=== PATIENT | male | born 1930 | race Caucasian/White ===

== ENCOUNTER 2017-07-18 11:20 | Emergency (ER) | payer MEDICARE, OTHER ==
--- NOTE | 2017-07-18 12:49 | EDM.PDOC ---
ED HPI GENERAL MEDICAL PROBLEM - General Chief Complaint: Neuro Symptoms/Deficits Stated Complaint: STROKE ? Time Seen by Provider: 07/18/17 12:46 Source of Information: Reports: Patient History Limitations: Reports: No Limitations - History of Present Illness INITIAL COMMENTS - FREE TEXT/NARRATIVE: Pt got out of the car at [facility] and he could not figure \out how to use his feet. He was weak on the left side. He has had a previous strokeinvolving the lft. He was started on elequist about 6 days ago. He had been off of coumadin for 2 monthes. He has a history of afib. Onset: Sudden Duration: Hour(s):, Other (pt was not able to use his walker when he got out of the car today. ) Location: Reports: Lower Extremity, Left Associated Symptoms: Reports: Weakness, Other ( difficulty ambulating. ) - Related Data Allergies Allergy/AdvReac Type Severity Reaction Status Date / Time No Known Allergies Allergy Verified 07/18/17 12:32 Past Medical History Cardiovascular History: Reports: Afib, Hypertension Gastrointestinal History: Reports: GI Bleed Neurological History: Reports: CVA - Infectious Disease History Infectious Disease History: Reports: Chicken Pox, Measles, Mumps Social & Family History - Tobacco Use Smoking Status *Q: Former Smoker Used Tobacco, but Quit: Yes Month/Year Tobacco Last Used: many years ago - Caffeine Use Caffeine Use: Reports: Coffee - Recreational Drug Use Recreational Drug Use: No ED ROS GENERAL - Review of Systems Review Of Systems: See Below Constitutional: Reports: No Symptoms HEENT: Reports: No Symptoms Respiratory: Reports: No Symptoms Cardiovascular: Reports: No Symptoms Endocrine: Reports: No Symptoms GI/Abdominal: Reports: No Symptoms : Reports: No Symptoms Musculoskeletal: Reports: No Symptoms Skin: Reports: No Symptoms ED EXAM, NEURO - Physical Exam Exam: See Below Text/Narrative:: pt had an episode at [facility] where he could not use his left leg correctly . He did not have a headache. Exam Limited By: No Limitations General Appearance: Alert, Anxious, Mild Distress, Other (pupils equal and reactive.) Ears: Normal TMs Nose: Normal Inspection Throat/Mouth: Normal Inspection Head Exam: Atraumatic Neck: Normal Inspection Respiratory/Chest: No Respiratory Distress Cardiovascular: Irregularly Irregular, Other (pt has chronic atrial fib. He is somewhat between his blood thinner program He was off of coumadin for about 2 monthes and he now has had 4 or 5 does of elequist. ) GI/Abdominal: Soft, Non-Tender (Male) Exam: Deferred Rectal (Males) Exam: Deferred Neurological: Alert, Oriented x 3 Back Exam: Normal Inspection Extremities: Normal Inspection Psychiatric: Normal Affect Course - Vital Signs Last Recorded V/S: Last Vital Signs Temp 37.0 C 07/18/17 12:25 Pulse 73 07/18/17 12:25 Resp 18 07/18/17 12:25 BP 171/87 H 07/18/17 12:25 Pulse Ox 93 L 07/18/17 12:25 - Orders/Labs/Meds Orders: Active Orders 24 hr Category Date Time Status EKG Documentation Completion [RC] ASDIRECTED Care 07/18/17 12:30 Active Brain wo Cont [MR] Stat Exams 07/18/17 14:23 Taken UA W/MICROSCOPIC [URIN] Urgent Lab 07/18/17 15:26 Ordered EKG 12 Lead [EK] Routine Ther 07/18/17 12:30 Ordered Labs: Laboratory Tests 07/18/17 07/18/17 07/18/17 Range/Units 12:43 12:43 15:26 WBC 6.4 (4.5-11.0) K/uL RBC 5.15 (4.30-5.90) M/uL Hgb 16.0 H (12.0-15.0) g/dL Hct 45.9 (40.0-54.0) % MCV 89 (80-98) fL MCH 31 (27-31) pg MCHC 35 (32-36) % Plt Count 143 L (150-400) K/uL Neut % (Auto) 71 H (36-66) % Lymph % (Auto) 19 L (24-44) % [place] % (Auto) 8 H (2-6) % Eos % (Auto) 2 (2-4) % Baso % (Auto) 0 (0-1) % Sodium 141 (140-148) mmol/L Potassium 3.6 (3.6-5.2) mmol/L Chloride 105 (100-108) mmol/L Carbon Dioxide 30 (21-32) mmol/L Anion Gap 6.4 (5.0-14.0) mmol/L BUN 20 H (7-18) mg/dL Creatinine 1.6 H (0.8-1.3) mg/dL Est Cr Clr Drug Dosing 33.14 mL/min Estimated GFR (MDRD) 41 L (>60) Glucose 184 H (74-106) mg/dL Calcium 8.6 (8.5-10.1) mg/dL Total Bilirubin 0.8 (0.2-1.0) mg/dL AST 13 L (15-37) U/L ALT 17 (12-78) U/L Alkaline Phosphatase 101 (46-116) U/L Total Protein 7.2 (6.4-8.2) g/dL Albumin 3.5 (3.4-5.0) g/dL Globulin 3.7 H (2.3-3.5) g/dL Albumin/Globulin Ratio 1.0 L (1.2-2.2) Urine Color Yellow Urine Appearance Cloudy Urine pH 5.0 (4.5-8.0) Ur Specific [place] 1.020 (1.008-1.030) Urine Protein Negative (NEGATIVE) mg/dL Urine Glucose (UA) Normal (NEGATIVE) mg/dL Urine Ketones Negative (NEGATIVE) mg/dL Urine Occult Blood Negative (NEGATIVE) Urine Nitrite Negative (NEGAITVE) Urine Bilirubin Small (NEGATIVE) Urine Urobilinogen 1 (NORMAL) mg/dL Ur Leukocyte Esterase Small (NEGATIVE) Urine RBC Not seen (0-5) Urine WBC 5-10 H (0-5) Ur Epithelial Cells Rare Amorphous Sediment Rare Urine Bacteria Rare Urine Mucus Many - Re-Assessments/Exams Free Text/Narrative Re-Assessment/Exam: 07/18/17 16:11 cat scan did not show acute findings, the Mri was done because of the symptoms that did show no acute findings. It did show the chronic infarcts. Departure - Departure Time of Disposition: 16:12 Disposition: Home, Self-Care 01 Condition: Fair Clinical Impression: TIA (transient ischemic attack) - Discharge Information Referrals: PCP,None [Primary Care Provider] - Forms: ED Department Discharge Care Plan Goals: cont with the elequist, cont other meds the same rtc if problems. follow up at the [facility]. - My Orders Last 24 Hours: My Active Orders 07/18/17 12:30 EKG Documentation Completion [RC] ASDIRECTED EKG 12 Lead [EK] Routine 07/18/17 14:23 Brain wo Cont [MR] Stat 07/18/17 15:26 UA W/MICROSCOPIC [URIN] Urgent - Assessment/Plan Last 24 Hours: My Active Orders 07/18/17 12:30 EKG Documentation Completion [RC] ASDIRECTED EKG 12 Lead [EK] Routine 07/18/17 14:23 Brain wo Cont [MR] Stat 07/18/17 15:26 UA W/MICROSCOPIC [URIN] Urgent
--- NOTE | 2017-07-18 13:19 | CT ---
Head wo Cont CLINICAL HISTORY: Left leg weakness COMPARISON: 02/09/2009 TECHNIQUE: Transverse scans were obtained from the base of the skull through the vertex without IV co ntrast on a multislice, multidetector CT scanner. Auto dosage reduction and iterative reconstruction techniques employed. FINDINGS: There is a low-attenuation focus in the right the temporal occipital region which is consis tent with encephalomalacia from an old ischemic infarct is a small lacunar type infarct in the left h ead of the caudate nucleus likely of remote chronology. There is no mass effect, hemorrhage, or extra axial collection. The basal cisterns and sulci over the convexities are prominent. The ventricles are prominent. 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
== END 2017-07-18 16:30 | disposition home or self-care (01) ==
LOC: JP.ED 11:20
DX: G45.9 Transient cerebral ischemic attack, unspecified (principal); I10 Essential (primary) hypertension; Z87.891 Personal history of nicotine dependence
CPT/HCPCS: 36415; 70450; 70450-26; 70551; 80053; 81001; 85025; 93005; 99285-25